=== PATIENT | male | born 1970 ===

== ENCOUNTER 2022-06-09 04:24 | Day surgery (SDC) | payer OTHER ==
[2022-06-08 10:07] VITALS: BMI 24.7
[2022-06-09] MEDS ORDERED: BACITRACIN 15 GM TUBE TOPICAL OINTMENT ONE (11:09)
[2022-06-09] MEDS ORDERED: ONDANSETRON 4 MG/2 ML VIAL ONE (11:18)
[2022-06-09] MEDS ORDERED: PROPOFOL 20 ML ONE ×2 (11:18→12:23)
[2022-06-09] MEDS ORDERED: LIDOCAINE HCL/PF 2% SDV 5ML VIAL ONE (11:18)
[2022-06-09] MEDS ORDERED: DEXAMETHASONE SOD PHOSPHATE 4 MG/1 ML VIAL ONE (11:18)
[2022-06-09] MEDS ORDERED: MIDAZOLAM HCL 2 MG/2 ML SINGLE DOSE VIAL ONE (11:19)
[2022-06-09] MEDS ORDERED: DESFLURANE GAS 240 ML BOTTLE IH ONE (11:55)
[2022-06-09] MEDS ORDERED: oxyCODONE HCL 5 MG TABLET PO PRN (14:00)
[2022-06-09] MEDS ORDERED: ONDANSETRON 4 MG/2 ML VIAL IVPUSH PRN (14:00)
[2022-06-09] MEDS ORDERED: LACTATED RINGERS SOLUTION 1,000 ML IV SCH (14:00)
[2022-06-09] MEDS ORDERED: oxyCODONE HCL 5 MG TABLET ONE (14:39)
[2022-06-09] MEDS ORDERED: oxyCODONE HCL 5 MG TABLET PO ONE (14:45)
[2022-06-09 15:52] VITALS: RESP 18
[2022-06-09 16:54] VITALS: BP 126/75; PULSE 54; TEMP 98.2
== END 2022-06-09 16:58 | disposition home or self-care (01) ==
LOC: JASU-SURG 04:24
PROVIDERS: ATTEND Urology
PROC: 0V503ZZ Destruction of Prostate, Percutaneous Approach (ICD-10-PCS; principal; 2022-06-09 12:00)
DX: C61 Malignant neoplasm of prostate (principal)
CPT/HCPCS: 55873; C2618; 94760